=== PATIENT | female | born 1975 | race Caucasian/White ===

== ENCOUNTER 2018-02-16 13:40 | Day surgery (SDC) | payer OTHER, MEDICAID, SELFPAY ==
[2018-02-10 09:58] VITALS: BMI 25.2
[2018-02-16] VITALS (7 sets, daily range): BP systolic 107–126; BP diastolic 67–85; PULSE 47–60; RESP 8–16; TEMP 36.1–36.6; O2SAT 94–100; BMI 25.2
--- NOTE | 2018-02-16 14:17 | PM.PREOP ---
Pre-operative Note Interval Note Pre-op Check: History & Physical Reviewed by Physician and Exam Performed
[2018-02-16] MEDS: LACTATED RINGERS 1,000 ML 42 ML IV (14:25)
--- NOTE | 2018-02-16 14:42 | SUR.OPER ---
Lithotomy on padded OR bed, head on pillow, arms secured on padded arm boards at <90 degrees abduction. Legs secured in padded yellow fins stirrups.
--- NOTE | 2018-02-16 15:16 | P.OP_ITS ---
Operative Date/Time/Diagnoses Date of procedure: 02/16/18 Time of procedure: 15:12 Pre-op diagnosis: Retained IUD Post-op diagnosis: same Procedure & Clinicians Procedure: Cervical dilation with removal of retained IUD Same procedure as scheduled: No (Hysteroscopy was not required) Indications: Retained ParaGard IUD unable to remove in the office Surgeon: Anabela Ojeda Click Yes if Unassisted: Yes Anesthesia Type: General Operative Notes Findings: Normal exam under anesthesia. ParaGard IUD removed. Closure Type: not applicable Specimen(s): none sent Estimated Blood Loss (mL): 1 Blood products transfused: none Procedure in detail: Patient was brought to the operating room where she underwent general anesthesia. She was placed in low Yellofin stirrups and prepped and draped in the usual sterile fashion. The bladder was drained with in -and out catheter. A check system was reviewed with the staff in the room prior to the case. No antibiotics were indicated. Due to the short nature of the procedure warming was with blankets and no pulsatile stockings were placed. The cervix was grasped with a single-tooth tenaculum and the cervix dilated to a #8 Hegar dilator. Packing forceps were placed in the uterus and the IUD string was grasped. The IUD was removed intact without difficulty at that point. The patient went to recovery room in good condition. Counts of instruments and sponges were correct. Complications: none Condition: stable Disposition: same day surgery Plan for aftercare: Home when awake and stable follow-up as needed.
[2018-02-16] MEDS: KETOROLAC 30 MG/ML VIAL IV (15:21)
== END 2018-02-16 16:05 | disposition home or self-care (01) ==
PROVIDERS: Visit Provider Specialist
PROC: 0UDB8ZZ Extraction of Endometrium, Via Natural or Artificial Opening Endoscopic (ICD-10-PCS; CPT 58558; principal; 2018-02-16 15:00)
DX: Z30.432 Encounter for removal of intrauterine contraceptive device (principal); T83.32XA Displacement of intrauterine contraceptive device, initial encounter
CPT/HCPCS: 58301; J1100; J1885; J2405; J2704; J3010